=== PATIENT | female | born 1995 | race Caucasian/White ===

== ENCOUNTER 2021-03-02 06:29 | Inpatient (IN) | payer OTHER ==
[~2021-03-02] VITALS: Ht 165.1 cm; Wt 85.7 kg
[2021-03-02 07:36] LABS: HEMOGLOBIN 9.9 gm/dl (12.3-15.3); RED BLOOD COUNT 3.73 M/UL (4.00-5.10); WHITE BLOOD COUNT 7.4 K/UL (4.5-11.0)
[2021-03-02] MEDS ORDERED: ACTIGALL 300MG300 MG PO (08:52)
[2021-03-02] MEDS ORDERED: SERTRALINE HCL100 MG PO (08:52)
[2021-03-03 07:44] LABS: HEMOGLOBIN 8.8 gm/dl (12.3-15.3)
[2021-03-03] MEDS ORDERED: FERROUS SULFAT325 M2 PO (13:11)
[2021-03-03] MEDS ORDERED: DOCUSATE SODIU100 MG PO (13:11)
[2021-03-03] MEDS ORDERED: HYDROCODON-ACE1 EAC4 PO (13:11)
[2021-03-03] MEDS ORDERED: IBUPROFEN800 MG PO (13:11)
== END 2021-03-04 14:53 | disposition home or self-care (01) | DRG 805 ==
LOC: OB 06:29
PROVIDERS: ADMIT Obstetrics & Gynecology
PROC: 10E0XZZ Delivery of Products of Conception, External Approach (ICD-10-PCS; principal; 2021-03-02)
PROC: 10907ZC Drainage of Amniotic Fluid, Therapeutic from Products of Conception, Via Natural or Artificial Opening (ICD-10-PCS; 2021-03-02)
PROC: 0KQM0ZZ Repair Perineum Muscle, Open Approach (ICD-10-PCS; 2021-03-02)
PROC: 4A1HXCZ Monitoring of Products of Conception, Cardiac Rate, External Approach (ICD-10-PCS; 2021-03-02)
PROC: 10H07YZ Insertion of Other Device into Products of Conception, Via Natural or Artificial Opening (ICD-10-PCS; 2021-03-02)
PROC: 3E033VJ Introduction of Other Hormone into Peripheral Vein, Percutaneous Approach (ICD-10-PCS; 2021-03-02)
DX: O26.62 Liver and biliary tract disorders in childbirth (principal); K83.1 Obstruction of bile duct; Z37.0 Single live birth; Z20.822 Contact with and (suspected) exposure to COVID-19; O99.344 Other mental disorders complicating childbirth; F41.9 Anxiety disorder, unspecified; O70.1 Second degree perineal laceration during delivery; F32.A Depression, unspecified; O99.02 Anemia complicating childbirth; D64.9 Anemia, unspecified; F42.9 Obsessive-compulsive disorder, unspecified; Z3A.37 37 weeks gestation of pregnancy; Z88.5 Allergy status to narcotic agent
CPT/HCPCS: 36415; 51702; 81001; 82800; 85014; 85018; 85025; 90471; 90715; J7120